=== PATIENT | female | born 1970 | race Caucasian/White ===

== ENCOUNTER 2019-02-17 16:01 | Emergency (ER) | payer BC ==
--- OUTSIDE RECORDS SUMMARY | 2019-02-17 17:01 | XMS REPORT | Continuity of Care Document ---
:1970 External Reference #:[id number] Author Name Magdalena Lazaro Care Team Providers Name Role Phone Jessenia Guy MD Primary Care Physician Unavailable Payers Date Identification Numbers Payment Provider Subscriber Policy Number: [id number] [facility] Jagdish Campbell PayID: [id number] [address] [address] [place] [address] Advance Directives Description No Information Available Problems Description No Information Family History Date Family Member(s) Observation Comments Mother Breast Cancer DX 60s Mother Parkinson's Disease Social History Type Date Description Comments Sex Unknown Marital Status Lives With Sons Lives With Spouse 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 ETOH Use Occasionally consumes alcohol Tobacco Use Start: Unknown Patient has never smoked Recreational Drug Use Denies Drug Use Smoking Status Reviewed: 01/24/19 Patient has never smoked Exercise Type/Frequency Exercises regularly Allergies, Adverse Reactions, Alerts Date Description Reaction Status Severity Comments 05/23/2018 Macrobid Active 05/23/2018 Sulfa Antibiotics Active Medications Medication Date Status Form Strength Qnty SIG Indications Ordering Provider No Active 12/26/2018 Active Unknown Medications Naproxen 10/16/2018 Hx Tablets 500mg 60tabs 1 by M75.31 Kirk F - Unknown mouth Arsalan, twice a MD day as needed pain No Active 09/25/2018 Hx Unknown Medications - 10/16/2018 No Active 05/23/2018 Hx Unknown Medications - 05/29/2018 Multivitamin Hx Tablets 1 by Unknown Adult - mouth 09/24/2018 every day Glutathione-L Hx Powder 500mg. Unknown - 09/24/2018 Medications Administered in Office Medication Date Status Form Strength Qnty SIG Indications Ordering Provider Depomedrol Administered Injection Kirk F 40MG 018 MD Arsalan Immunizations Description No Information Available Vital Signs Date Vital Result Comment 01/24/2019 1:35pm Heart Rate 66 /min BP Systolic Sitting 96 mmHg BP Diastolic Sitting 56 mmHg Respiratory Rate 16 /min Body Temperature 98.3 F 12/26/2018 11:23am Height 70 inches 5'10" Weight 134.00 lb Heart Rate 68 /min BP Systolic 114 mmHg BP Diastolic 68 mmHg Respiratory Rate 16 /min Body Temperature 97.8 F BMI (Body Mass Index) 19.2 kg/m2 10/16/2018 8:34am Height 70 inches 5'10" Weight 135.00 lb Heart Rate 70 /min BP Systolic 100 mmHg BP Diastolic 68 mmHg Respiratory Rate 12 /min Pain Level 3 BMI (Body Mass Index) 19.4 kg/m2 09/25/2018 9:39am Height 70 inches 5'10" Weight 138.75 lb Heart Rate 60 /min BP Systolic 90 mmHg BP Diastolic 56 mmHg Respiratory Rate 16 /min Body Temperature 97.5 F Pain Level 5 BMI (Body Mass Index) 19.9 kg/m2 05/29/2018 1:20pm Height 69.5 inches 5'9.50" Weight 135.00 lb Heart Rate 68 /min BP Systolic 114 mmHg BP Diastolic 64 mmHg Respiratory Rate 16 /min Body Temperature 97.8 F BMI (Body Mass Index) 19.6 kg/m2 Results Test Date Facility Test Result H/L Range Note Laboratory test 01/01/2019 [facility] SEE RESULT 1 , [address] [place] [address] [phone] 1 [id number] 2 SEE RESULT BELOW Name: CHRISTIANA CAMPBELL Ana : [address]: Reuben Frye RPA Acct: [id number] Unit: [id number] AGE: 48 Location: [facility] Re01/01/19 SEX: F Status: REG REF SPEC: [id number] AMANDEEP: 01/01/19 [facility] DR: Freddy Barrow MD REQ: [id number] RECD: 01/01/19 STATUS: TASHA MEDEROS DR: Reuben Frye RPA _ ORDERED: LEVEL 4 COMMENTS: [id number] FINAL DIAGNOSIS Breast, right, 6:00, core biopsy: -- Benign tubular adenoma. -- No evidence of invasive or in situ carcinoma. COMMENT: Clinical and radiologic correlation is recommended. PRE-OPERATIVE DIAGNOSIS Right breast mass 6:00, 0.8 x 0.5 x 0.6 cm. GROSS DESCRIPTION The specimen is received in formalin labeled, Right Breast, and consists of three yellow-white fibrofatty soft tissue cores ranging from 0.7 x 0.2 cm to 1.5 x 0.2 cm which are submitted entirely in one cassette. Signed by and Reported on: Niurka Lepe MD 01/02/19 1034 END OF REPORT DEPARTMENT OF PATHOLOGY, [address] [place] [address] Bobby Guerra M.D. Director [facility] # [id number] Procedures Date Code Description Status 01/01/2019 [id number] Mammogram Completed 10/16/2018 12420 Inject/Drain Joint/Bursa Major W/O US Completed 05/16/2018 [id number] Mammogram Completed 12/31/2015 [id number] Mammogram Completed Encounters Type Date Location Provider Dx Diagnosis Office Visit 12/26/2018 [facility] Narcisa Bates N63.10 Unspecified lump 11:15a [facility] in the right breast, unspecified quadrant Office Visit 10/16/2018 [facility] Kirk Damon M75.31 [facility] 8:15a [facility] tendinitis of right shoulder Office Visit 09/25/2018 [facility] Kirk Damon S46.011A Strain of 8:45a [facility] MD musc/tend the rotator cuff of right shoulder, init Office Visit 05/29/2018 [facility] N[facility] Bates N63.10 Unspecified lump 1:00p [facility] MD in the right breast, unspecified quadrant Plan of Treatment Future Appointment(s):05/01/2019 9:00 am - [facility] - Narcisa Aguilar MDN63.10 Unspecified lump in the right breast, unspecified quadrantFollow up:after April mammo
[2019-02-17 17:04] VITALS: BP 102/62
[2019-02-17] MEDS ORDERED: Tetan/Diph/Pertus SYR(Tdap)* 0.5 ML SYR(BOOSTRIX) use SYR IM ONE (17:15)
--- NOTE | 2019-02-17 17:23 | UC ---
Skin Complaint HPI - HPI Summary HPI Summary: stepped on a nail approx 4 h ago. nail penetrated L sole of foot, did go through shoe - History of Current Complaint Chief Complaint: UCLowerExtremity Time Seen by Provider: 02/17/19 17:14 Stated Complaint: L FOOT INJURY Hx Obtained From: Patient ?: No Onset/Duration: Sudden Onset Skin Exposure Onset/Duration: Hours Ago Timing: Constant Onset Severity: Mild Current Severity: Mild Pain Intensity: 1 Location: Foot (Left) Character: Pain Aggravating Factor(s): Other - walking Alleviating Factor(s): Nothing Associated Signs & Symptoms: Positive: Negative Related History: Trauma - Allergy/Home Medications Allergies/Adverse Reactions: Allergies Allergy/AdvReac Type Severity Reaction Status Date / Time sulfa drugs Allergy See Comment Uncoded 02/17/19 17:04 PMH/Surg Hx/FS Hx/Imm Hx Previously Healthy: Yes - Surgical History Surgical History: Yes Surgery Procedure, Year, and Place: DEVIATED SEPTUM LATE TEENS - Family History Known Family History: Positive: None Negative: Hypertension, Diabetes - Social History Occupation: Employed Full-time Lives: With Family Alcohol Use: Weekly Alcohol Amount: [employer] Substance Use Type: None Substance Use Comment - Amount & Last Used: [employer] Smoking Status (MU): Never Smoked Tobacco Have You Smoked in the Last Year: No - Immunization History Most Recent Tetanus Shot: cannot recall Review of Systems All Other Systems Reviewed And Are Negative: Yes Constitutional: Positive: Negative Skin: Positive: Other - PW L foot Respiratory: Positive: Negative Cardiovascular: Positive: Negative Musculoskeletal: Positive: Negative Neurological: Positive: Negative Psychological: Positive: Negative Is Patient Immunocompromised?: No Physical Exam Triage Information Reviewed: Yes Appearance: Well-Appearing, No Pain Distress, Well-Nourished Vital Signs: Initial Vital Signs Temp 97.5 F 02/17/19 17:01 Pulse 71 02/17/19 17:01 Resp 18 02/17/19 17:01 BP 102/62 02/17/19 17:01 Pulse Ox 98 02/17/19 17:01 Vital Signs Reviewed: Yes Respiratory Exam: Normal Respiratory: Positive: Lungs clear Cardiovascular Exam: Normal Cardiovascular: Positive: RRR Musculoskeletal Exam: Normal Musculoskeletal: Positive: Strength Intact, ROM Intact Neurological Exam: Normal Skin Exam: Other - small PW L sole, no redness or swelling noted Course/Dx - Differential Diagnoses - Skin Complaint Differential Diagnoses: Cellulitis, Other - PW - Diagnoses Provider Diagnosis: Puncture wound Discharge - Sign-Out/Discharge Documenting (check all that apply): Patient Departure All imaging exams completed and their final reports reviewed: No Studies - Discharge Plan Condition: Stable Disposition: HOME Prescriptions: Cephalexin CAP* [Keflex 500 CAP*] 500 mg PO QID #28 cap Patient Education Materials: Diphtheria/Pertussis/Tetanus Vaccine (By injection ), Puncture Wound (ED) Referrals: Jessenia Guy MD [Primary Care Provider] - 2 Days (wound recheck) Additional Instructions: elevate foot keep area clean and dry start keflex if you see redness or swelling ibuprofen 600mg every 6 hours as needed for pain - Billing Disposition and Condition Condition: STABLE Disposition: Home - Attestation Statements Provider Attestation: I was available for consult. This patient was seen by the CANDE. The patient was not presented to , seen by or examined by vt -Neha Scott MD Addendum entered and electronically signed by Navdeep Downing NP 02/17/19 17: 25: Addendum Addendum: pt refuses cleaning wound - states she already did it. declines dressing as well
== END 2019-02-17 17:43 | disposition home or self-care (01) ==
LOC: UCEAST 16:01
DX: S91.332A Puncture wound without foreign body, left foot, initial encounter (principal); Z88.2 Allergy status to sulfonamides; W45.0XXA Nail entering through skin, initial encounter; Y92.9 Unspecified place or not applicable
CPT/HCPCS: 90471; 90715; 99212; G0463